=== PATIENT | female | born 1940 | race African-American/Black ===

== ENCOUNTER 2020-08-24 16:47 | Emergency (ER) | payer OTHER ==
[~2020-08-24] VITALS: Ht 157.5 cm; Wt 53.5 kg
[2020-08-24 16:58] VITALS: BP 111/44; Ht 157.5 cm; Wt 53.5 kg
== END 2020-08-24 19:01 | disposition home or self-care (01) ==
LOC: ED 16:47
DX: S93.401A Sprain of unspecified ligament of right ankle, initial encounter (principal); I10 Essential (primary) hypertension; E11.9 Type 2 diabetes mellitus without complications; W18.09XA Striking against other object with subsequent fall, initial encounter; Y93.89 Activity, other specified; Y92.89 Other specified places as the place of occurrence of the external cause; Y99.8 Other external cause status